=== PATIENT | male | born 1975 | race Caucasian/White ===

== ENCOUNTER 2018-03-08 08:21 | Emergency (ER) | payer OTHER ==
[~2018-03-08] VITALS: Ht 177.8 cm; Wt 120.2 kg
[2018-03-08 08:31] VITALS: BP_SYST 142
[2018-03-08] MEDS: KETOROLAC TROMETHAMINE 60 MG/2 ML VIAL IM ONE (08:48)
[2018-03-08 09:17] LABS: BASOPHILS # (AUTO) 0.1 K/uL (0.0-0.2); EOSINOPHILS # (AUTO) 0.1 K/uL (0.0-0.4); EOSINOPHILS % (AUTO) 1.7 % (0.0-4.0); HEMATOCRIT 49.8 % (36-54); HEMOGLOBIN 17.3 g/dL (14.0-18.0); LYMPHOCYTES # (AUTO) 2.6 K/uL (1.0-5.5); MEAN CORPUSCULAR HEMOGLOBIN 30 pg (27-31); MEAN CORPUSCULAR HGB CONC 35 % (32-36); MEAN CORPUSCULAR VOLUME 87 fL (79.0-98.0); MONOCYTES # (AUTO) 0.4 K/uL (0.0-1.0); MONOCYTES % (AUTO) 5.8 % (1.7-9.3); NEUTROPHILS # (AUTO) 4.1 K/uL (1.8-7.7); NEUTROPHILS % (AUTO) 55.5 % (40.0-70.0); PLATELET COUNT (AUTO) 243 K/uL (130-430); RED CELL DISTRIBUTION WIDTH 11.9 % (9.0-15.0); WHITE BLOOD COUNT (AUTO) 7.3 K/uL (4.8-10.8)
[2018-03-08 09:35] LABS: ALBUMIN 3.6 g/dL (3.4-4.8); CALCIUM 9.2 mg/dL (8.4-11.0); CREATININE 0.83 mg/dL (0.55-1.30); TOTAL BILIRUBIN 0.4 mg/dL (0.0-1.0)
[2018-03-08 10:34] VITALS: BP_SYST 135
== END 2018-03-08 10:32 | disposition home or self-care (01) ==
LOC: SED 08:21
DX: R10.32 Left lower quadrant pain (principal); M54.2 Cervicalgia; E11.9 Type 2 diabetes mellitus without complications; I10 Essential (primary) hypertension
CPT/HCPCS: 36415; 74176; 80053; 83690; 85025; 96372; 99285; J1885

== ENCOUNTER 2018-11-09 10:18 | Outpatient (CLI) | payer OTHER ==
[2018-11-09 11:15] LABS: BASOPHILS % (AUTO) 0.3 % (0.0-2.0); EOSINOPHILS # (AUTO) 0.1 K/uL (0.0-0.4); EOSINOPHILS % (AUTO) 1.8 % (0.0-4.0); HEMATOCRIT 51.1 % (36-54); HEMOGLOBIN 17.4 g/dL (14.0-18.0); LYMPHOCYTES # (AUTO) 2.5 K/uL (1.0-5.5); LYMPHOCYTES % (AUTO) 33.8 % (20.5-51.5); MEAN CORPUSCULAR HEMOGLOBIN 30 pg (27-31); MEAN CORPUSCULAR HGB CONC 34 % (32-36); MEAN CORPUSCULAR VOLUME 88 fL (79.0-98.0); MONOCYTES # (AUTO) 0.4 K/uL (0.0-1.0); MONOCYTES % (AUTO) 5.2 % (1.7-9.3); NEUTROPHILS # (AUTO) 4.3 K/uL (1.8-7.7); NEUTROPHILS % (AUTO) 58.9 % (40.0-70.0); PLATELET COUNT (AUTO) 254 K/uL (130-430); RED BLOOD CELL COUNT(AUTO) 5.83 MIL/uL (4.2-6.2); RED CELL DISTRIBUTION WIDTH 12.1 % (9.0-15.0); WHITE BLOOD COUNT (AUTO) 7.4 K/uL (4.8-10.8)
[2018-11-09 11:16] LABS: BILIRUBIN,URINE NEGATIVE (NEGATIVE); BLOOD, URINE NEGATIVE (NEGATIVE); CLARITY/URINE CLEAR (CLEAR); COLOR,URINE YELLOW (YELLOW); GLUCOSE,URINE NEGATIVE (NEGATIVE); KETONES,URINE NEGATIVE (NEGATIVE); LEUKOCYTE ESTERASE ,URINE NEGATIVE (NEGATIVE); NITRITE, URINE NEGATIVE (NEGATIVE); PROTEIN URINE TRACE (NEGATIVE); UROBILINOGEN,URINE 0.2 (0.2-1.0)
[2018-11-09 11:28] LABS: CALCIUM 9.9 mg/dL (8.4-11.0); CREATININE 0.82 mg/dL (0.55-1.30); POTASSIUM 4.3 mmol/L (3.5-5.1)
[2018-11-09 11:34] LABS: ALBUMIN 3.9 g/dL (3.4-4.8); TOTAL BILIRUBIN 0.5 mg/dL (0.0-1.0)
[2018-11-10 07:14] LABS: PROSTATE SPECIFIC AG 0.6 ng/mL (0.0-4.0)
[2018-11-12 12:30] LABS: HEMOGLOBIN A1C 8.1 % (4.8-5.6)
== END 2018-11-09 18:23 | disposition home or self-care (01) ==
LOC: SRD 10:18
PROVIDERS: ATTEND Internal Medicine
DX: Z12.5 Encounter for screening for malignant neoplasm of prostate (principal); Z13.29 Encounter for screening for other suspected endocrine disorder; Z13.21 Encounter for screening for nutritional disorder; Z13.220 Encounter for screening for lipoid disorders; M17.0 Bilateral primary osteoarthritis of knee; E78.5 Hyperlipidemia, unspecified; E11.9 Type 2 diabetes mellitus without complications; I10 Essential (primary) hypertension
CPT/HCPCS: 36415; 73564; 80053; 80061; 81003; 82306; 83036; 85025; 93970; G0103

== ENCOUNTER 2019-07-26 11:01 | Outpatient (CLI) | payer OTHER ==
[2019-07-26 11:48] LABS: BILIRUBIN,URINE NEGATIVE (NEGATIVE); BLOOD, URINE NEGATIVE (NEGATIVE); CLARITY/URINE CLEAR (CLEAR); COLOR,URINE YELLOW (YELLOW); GLUCOSE,URINE NEGATIVE (NEGATIVE); KETONES,URINE NEGATIVE (NEGATIVE); LEUKOCYTE ESTERASE ,URINE NEGATIVE (NEGATIVE); NITRITE, URINE NEGATIVE (NEGATIVE); PH,URINE 6.5 (5.0-8.0); PROTEIN URINE 1+ (NEGATIVE); UROBILINOGEN,URINE 0.2 (0.2-1.0)
[2019-07-26 11:52] LABS: BACTERIA,URINE FEW /HPF (None Seen); RBC,URINE 0-3 /HPF (0-3); WBC,URINE 0-3 /HPF (0-3)
[2019-07-26 12:11] LABS: BASOPHILS % (AUTO) 0.4 % (0.0-2.0); EOSINOPHILS # (AUTO) 0.2 K/uL (0.0-0.4); HEMATOCRIT 48.9 % (36-54); HEMOGLOBIN 17.2 g/dL (14.0-18.0); LYMPHOCYTES # (AUTO) 3.2 K/uL (1.0-5.5); LYMPHOCYTES % (AUTO) 37.4 % (20.5-51.5); MEAN CORPUSCULAR HEMOGLOBIN 31 pg (27-31); MEAN CORPUSCULAR HGB CONC 35 % (32-36); MEAN CORPUSCULAR VOLUME 87 fL (79.0-98.0); MONOCYTES # (AUTO) 0.5 K/uL (0.0-1.0); NEUTROPHILS # (AUTO) 4.6 K/uL (1.8-7.7); NEUTROPHILS % (AUTO) 54.2 % (40.0-70.0); PLATELET COUNT (AUTO) 250 K/uL (130-430); RED BLOOD CELL COUNT(AUTO) 5.62 MIL/uL (4.2-6.2); RED CELL DISTRIBUTION WIDTH 13.1 % (9.0-15.0); WHITE BLOOD COUNT (AUTO) 8.5 K/uL (4.8-10.8)
[2019-07-26 12:15] LABS: ALBUMIN 4.1 g/dL (3.4-4.8); CALCIUM 9.7 mg/dL (8.4-11.0); CREATININE 0.82 mg/dL (0.55-1.30); FREE T4 (FREE THYROXINE) 0.9 ng/dl (0.8-1.5); POTASSIUM 3.9 mmol/L (3.5-5.1); THYROID STIMULATING HORMONE 1.22 uIu/mL (0.36-3.74); TOTAL BILIRUBIN 0.6 mg/dL (0.0-1.0)
[2019-07-28 17:34] LABS: HEMOGLOBIN A1C 8.4 % (4.8-5.6)
== END 2019-07-26 20:56 | disposition home or self-care (01) ==
LOC: SLB 11:01
PROVIDERS: ATTEND Internal Medicine
DX: Z00.00 Encounter for general adult medical examination without abnormal findings (principal); Z13.29 Encounter for screening for other suspected endocrine disorder; Z13.220 Encounter for screening for lipoid disorders; Z13.21 Encounter for screening for nutritional disorder; E11.9 Type 2 diabetes mellitus without complications; I10 Essential (primary) hypertension
CPT/HCPCS: 36415; 80053; 80061; 81000-TC; 82306; 83036; 84439; 84443-TC; 85025

== ENCOUNTER 2019-08-13 15:17 | Outpatient (CLI) | payer OTHER | END 2019-08-13 20:34 | disposition home or self-care (01) | LOC: SRD 15:17 | PROVIDERS: ATTEND Orthopaedic Surgery | DX: M17.11 Unilateral primary osteoarthritis, right knee (principal); M17.12 Unilateral primary osteoarthritis, left knee; M16.11 Unilateral primary osteoarthritis, right hip; M16.12 Unilateral primary osteoarthritis, left hip | CPT/HCPCS: 73565 ==

== ENCOUNTER 2020-01-17 15:08 | Emergency (ER) | payer OTHER ==
[~2020-01-17] VITALS: Ht 180.3 cm; Wt 117.9 kg
[2020-01-17] MEDS ORDERED: SITA1TAB10 PO (15:28)
[2020-01-17] MEDS ORDERED: LISI20TA PO (15:28)
[2020-01-17 15:29] VITALS: BP_SYST 121
--- NOTE | 2020-01-17 15:36 | NUR ---
PATIENT TO WAITING ROOM, STABLE, UNCHANGED
--- NOTE | 2020-01-17 19:38 | NUR ---
PATIENT NOT FOUND IN ER NOR SURROUNDING AREA; LWBS/ELOPED
== END 2020-01-17 19:38 | disposition left against medical advice (07) ==
LOC: SED 15:08
DX: S09.90XA Unspecified injury of head, initial encounter (principal); W18.39XA Other fall on same level, initial encounter; Y93.89 Activity, other specified; Y92.89 Other specified places as the place of occurrence of the external cause; Y99.8 Other external cause status; Z53.21 Procedure and treatment not carried out due to patient leaving prior to being seen by health care provider

== ENCOUNTER 2020-04-07 08:34 | Outpatient (CLI) | payer OTHER ==
[~2020-04-07 08:34] MED LIST: LISI20TA PO; SITA1TAB10 PO
[2020-04-07 08:58] LABS: BILIRUBIN,URINE NEGATIVE (NEGATIVE); BLOOD, URINE NEGATIVE (NEGATIVE); CLARITY/URINE CLEAR (CLEAR); COLOR,URINE YELLOW (YELLOW); GLUCOSE,URINE TRACE (NEGATIVE); KETONES,URINE NEGATIVE (NEGATIVE); LEUKOCYTE ESTERASE ,URINE NEGATIVE (NEGATIVE); NITRITE, URINE NEGATIVE (NEGATIVE); PROTEIN URINE 1+ (NEGATIVE); UROBILINOGEN,URINE 0.2 (0.2-1.0)
[2020-04-07 09:02] LABS: BASOPHILS % (AUTO) 0.4 % (0.0-2.0); EOSINOPHILS # (AUTO) 0.1 K/uL (0.0-0.4); EOSINOPHILS % (AUTO) 1.8 % (0.0-4.0); HEMATOCRIT 47.8 % (36-54); HEMOGLOBIN 16.6 g/dL (14.0-18.0); LYMPHOCYTES # (AUTO) 2.6 K/uL (1.0-5.5); LYMPHOCYTES % (AUTO) 33.4 % (20.5-51.5); MEAN CORPUSCULAR HEMOGLOBIN 30 pg (27-31); MEAN CORPUSCULAR HGB CONC 35 % (32-36); MEAN CORPUSCULAR VOLUME 86 fL (79.0-98.0); MONOCYTES # (AUTO) 0.5 K/uL (0.0-1.0); NEUTROPHILS # (AUTO) 4.6 K/uL (1.8-7.7); NEUTROPHILS % (AUTO) 58.4 % (40.0-70.0); PLATELET COUNT (AUTO) 236 K/uL (130-430); RED BLOOD CELL COUNT(AUTO) 5.58 MIL/uL (4.2-6.2); RED CELL DISTRIBUTION WIDTH 13.1 % (9.0-15.0); WHITE BLOOD COUNT (AUTO) 7.9 K/uL (4.8-10.8)
[2020-04-07 09:07] LABS: BACTERIA,URINE RARE /HPF (None Seen); RBC,URINE NONE SEEN /HPF (0-3); WBC,URINE 0-3 /HPF (0-3)
[2020-04-07 09:26] LABS: ALBUMIN 3.9 g/dL (3.4-4.8); CALCIUM 9.5 mg/dL (8.4-11.0); CREATININE 0.87 mg/dL (0.55-1.30); FREE T4 (FREE THYROXINE) 0.7 ng/dL (0.6-1.6); POTASSIUM 4.1 mmol/L (3.5-5.1); THYROID STIMULATING HORMONE 1.02 uIu/mL (0.34-4.82); TOTAL BILIRUBIN 0.5 mg/dL (0.0-1.0)
[2020-04-07] MEDS ORDERED: HYDROmorphone 1 MG INJ. 1 MG/ML AMPUL ONE (10:50)
[2020-04-09 10:42] LABS: HEMOGLOBIN A1C 10.5 % (4.8-5.6)
== END 2020-04-07 20:58 | disposition home or self-care (01) ==
LOC: SUS 08:34
PROVIDERS: ATTEND Internal Medicine
DX: Z00.00 Encounter for general adult medical examination without abnormal findings (principal); Z13.220 Encounter for screening for lipoid disorders; Z13.29 Encounter for screening for other suspected endocrine disorder; E55.9 Vitamin D deficiency, unspecified; E11.9 Type 2 diabetes mellitus without complications; R94.5 Abnormal results of liver function studies; K82.8 Other specified diseases of gallbladder
CPT/HCPCS: 36415; 76700-TC; 80053; 80061; 81000-TC; 82306; 83036; 84439; 84443-TC; 85025; J1170

== ENCOUNTER 2020-08-14 09:18 | Outpatient (CLI) | payer OTHER ==
[2020-08-14 11:06] LABS: BASOPHILS % (AUTO) 0.3 % (0.0-2.0); EOSINOPHILS # (AUTO) 0.1 K/uL (0.0-0.4); EOSINOPHILS % (AUTO) 1.4 % (0.0-4.0); HEMATOCRIT 50.6 % (36-54); HEMOGLOBIN 17.3 g/dL (14.0-18.0); LYMPHOCYTES # (AUTO) 2.4 K/uL (1.0-5.5); LYMPHOCYTES % (AUTO) 28.5 % (20.5-51.5); MEAN CORPUSCULAR HEMOGLOBIN 30 pg (27-31); MEAN CORPUSCULAR HGB CONC 34 % (32-36); MEAN CORPUSCULAR VOLUME 87 fL (79.0-98.0); MONOCYTES # (AUTO) 0.5 K/uL (0.0-1.0); MONOCYTES % (AUTO) 5.6 % (1.7-9.3); NEUTROPHILS # (AUTO) 5.3 K/uL (1.8-7.7); NEUTROPHILS % (AUTO) 64.2 % (40.0-70.0); PLATELET COUNT (AUTO) 242 K/uL (130-430); RED BLOOD CELL COUNT(AUTO) 5.81 MIL/uL (4.2-6.2); WHITE BLOOD COUNT (AUTO) 8.3 K/uL (4.8-10.8)
[2020-08-14 11:21] LABS: ALBUMIN 3.9 g/dL (3.4-4.8); CALCIUM 9.6 mg/dL (8.4-11.0); CREATININE 0.9 mg/dL (0.55-1.30); POTASSIUM 3.9 mmol/L (3.5-5.1); TOTAL BILIRUBIN 0.5 mg/dL (0.0-1.0)
[2020-08-16 18:35] LABS: HEMOGLOBIN A1C 10.5 % (4.8-5.6)
== END 2020-08-14 20:37 | disposition home or self-care (01) ==
LOC: SUS 09:18
PROVIDERS: ATTEND Internal Medicine
DX: Z00.00 Encounter for general adult medical examination without abnormal findings (principal); Z13.1 Encounter for screening for diabetes mellitus; Z13.220 Encounter for screening for lipoid disorders; Z13.21 Encounter for screening for nutritional disorder; I10 Essential (primary) hypertension; I82.409 Acute embolism and thrombosis of unspecified deep veins of unspecified lower extremity
CPT/HCPCS: 36415; 80053; 80061; 82306; 83036; 85025; 93970

== ENCOUNTER 2020-10-10 07:49 | Outpatient (CLI) | payer OTHER ==
[2020-10-10 08:30] LABS: BASOPHILS % (AUTO) 0.3 % (0.0-2.0); EOSINOPHILS # (AUTO) 0.2 K/uL (0.0-0.4); EOSINOPHILS % (AUTO) 2.2 % (0.0-4.0); HEMATOCRIT 47.6 % (36-54); HEMOGLOBIN 16.8 g/dL (14.0-18.0); LYMPHOCYTES # (AUTO) 3.3 K/uL (1.0-5.5); LYMPHOCYTES % (AUTO) 36.5 % (20.5-51.5); MEAN CORPUSCULAR HEMOGLOBIN 31 pg (27-31); MEAN CORPUSCULAR HGB CONC 35 % (32-36); MEAN CORPUSCULAR VOLUME 87 fL (79.0-98.0); MONOCYTES # (AUTO) 0.6 K/uL (0.0-1.0); MONOCYTES % (AUTO) 6.7 % (1.7-9.3); NEUTROPHILS # (AUTO) 4.9 K/uL (1.8-7.7); NEUTROPHILS % (AUTO) 54.3 % (40.0-70.0); PLATELET COUNT (AUTO) 229 K/uL (130-430); RED CELL DISTRIBUTION WIDTH 12.4 % (9.0-15.0)
[2020-10-10 08:49] LABS: ALBUMIN 3.6 g/dL (3.4-4.8); CALCIUM 9.9 mg/dL (8.4-11.0); CREATININE 0.73 mg/dL (0.55-1.30); FREE T4 (FREE THYROXINE) 0.6 ng/dL (0.6-1.6); THYROID STIMULATING HORMONE 1.61 uIu/mL (0.34-4.82); TOTAL BILIRUBIN 0.4 mg/dL (0.0-1.0)
[2020-10-10 09:09] LABS: POTASSIUM 4.1 mmol/L (3.5-5.1)
[2020-10-11 07:06] LABS: PROSTATE SPECIFIC AG 0.6 ng/mL (0.0-4.0)
== END 2020-10-10 17:02 | disposition home or self-care (01) ==
LOC: SLB 07:49
PROVIDERS: ATTEND Internal Medicine
DX: Z00.00 Encounter for general adult medical examination without abnormal findings (principal); Z13.220 Encounter for screening for lipoid disorders; Z13.29 Encounter for screening for other suspected endocrine disorder; I10 Essential (primary) hypertension; E11.9 Type 2 diabetes mellitus without complications
CPT/HCPCS: 36415; 80053; 80061; 83036; 84153; 84439; 84443-TC; 85025

== ENCOUNTER 2020-10-14 10:22 | Outpatient (CLI) | payer OTHER | END 2020-10-14 21:04 | disposition home or self-care (01) | LOC: SMI 10:22 | PROVIDERS: ATTEND Psychiatry & Neurology Neurology | DX: M51.37 Other intervertebral disc degeneration, lumbosacral region (principal); M48.061 Spinal stenosis, lumbar region without neurogenic claudication | CPT/HCPCS: 72148 ==

== ENCOUNTER 2023-03-24 22:42 | Emergency (ER) | payer OTHER ==
[~2023-03-24] VITALS: Ht 180.3 cm; Wt 99.8 kg
--- NOTE | 2023-03-24 22:47 | NUR ---
Patient to ER bed 08 to gown for evaluation. Side rails up. Report given to Alex.
[2023-03-24 22:48] VITALS: BP_SYST 141
--- NOTE | 2023-03-24 23:00 | NUR ---
Pt from home with c/o headache, congestion, sore throat, body aches x 4 days. Pt states that he has been around several people who are influenza positive. Pt speaking in full sentences, NAD. Pt tachycardic at 133 BPM, made aware. Safety precautions in place and connected to monitor.
--- NOTE | 2023-03-24 23:03 | NUR ---
Dr. Herring with patient at bedside with patient for MSE.
[2023-03-24] MEDS ORDERED: NACL 0.9% 1,000 ML IV ONE (23:15)
--- NOTE | 2023-03-24 23:40 | NUR ---
STREP, COVID AND INFLUENZA COLLECTED AND SENT TO LAB.
[2023-03-24 23:52] LABS: ALBUMIN 3.8 g/dL (3.4-4.8); CALCIUM 9.8 mg/dL (8.4-11.0); CREATININE 0.9 mg/dL (0.55-1.30); TOTAL BILIRUBIN 0.6 mg/dL (0.0-1.0)
[2023-03-25] MEDS ORDERED: NACL 0.9% 1,000 ML IV ONE
[2023-03-25 00:12] LABS: BASOPHILS % (AUTO) 0.1 % (0.0-2.0); EOSINOPHILS # (AUTO) 0.1 K/uL (0.0-0.4); EOSINOPHILS % (AUTO) 0.5 % (0.0-4.0); HEMATOCRIT 44.2 % (36-54); HEMOGLOBIN 15.5 g/dL (14.0-18.0); LYMPHOCYTES % (AUTO) 19.9 % (20.5-51.5); MEAN CORPUSCULAR HEMOGLOBIN 30 pg (27-31); MEAN CORPUSCULAR HGB CONC 35 % (32-36); MEAN CORPUSCULAR VOLUME 86 fL (79.0-98.0); MONOCYTES # (AUTO) 1.2 K/uL (0.0-1.0); MONOCYTES % (AUTO) 7.8 % (1.7-9.3); NEUTROPHILS # (AUTO) 10.6 K/uL (1.8-7.7); NEUTROPHILS % (AUTO) 71.7 % (40.0-70.0); PLATELET COUNT (AUTO) 252 K/uL (130-430); RED BLOOD CELL COUNT(AUTO) 5.12 MIL/uL (4.2-6.2); RED CELL DISTRIBUTION WIDTH 12.7 % (9.0-15.0); WHITE BLOOD COUNT (AUTO) 14.8 K/uL (4.8-10.8)
[2023-03-25] MEDS ORDERED: BENZ100C92 PO (02:15)
[2023-03-25] MEDS ORDERED: ERYEYE EACH EYE (02:15)
[2023-03-25] MEDS ORDERED: BENZ1LOZ73 PO (02:15)
[2023-03-25 02:30] VITALS: BP_SYST 146
--- NOTE | 2023-03-25 02:30 | NUR ---
Patient given written and verbal discharge instructions and verbalizes understanding. ER DR. PASTOR discussed with patient the results and treatment provided. Patient in stable condition. ID arm band removed. Rx of BENZONATATE, BENZOCAINE/MENTHOL, ERYTHROMYCIN given. Patient educated on pain management and to follow up with PMD. Pain Scale 0. Opportunity for questions provided and answered. Medication side effect fact sheet provided.
== END 2023-03-25 02:30 | disposition home or self-care (01) ==
LOC: SED 22:42
DX: B34.9 Viral infection, unspecified (principal); H10.9 Unspecified conjunctivitis; E11.65 Type 2 diabetes mellitus with hyperglycemia; R73.9 Hyperglycemia, unspecified; I10 Essential (primary) hypertension; Z79.899 Other long term (current) drug therapy; Z20.822 Contact with and (suspected) exposure to COVID-19
CPT/HCPCS: 99284; 96360; 71045; 87426; 80053; 82009; 85025; 86403; 36415; 87081; 87804 ×2; J7030